=== PATIENT | male | born 1960 | race Caucasian/White ===

== ENCOUNTER 2017-06-12 07:05 | Day surgery (SDC) | payer BC ==
--- NOTE | 2017-06-10 21:22 | HP ---
CC: Dr. Pedroza * HISTORY AND PHYSICAL: DATE OF PLANNED ADMISSION AND SURGERY: 06/12/17 HISTORY OF PRESENT ILLNESS: Mr. Stokes is a 57-year-old white male, who is admitted with a recent episode of gross painless hematuria and a suspicious lesion in the right renal pelvis for cystoscopy, bilateral retrograde pyelographies, and possible bilateral ureteroscopies. Mr. Stokes was doing fine until about 10 days ago when he noted total gross painless hematuria. The urine was somewhat brownish. He had associated very mild left flank discomfort. He did not have any symptoms of renal colics. There were no symptoms of prostatitis or urinary tract infections. The patient was evaluated in the office and had a urinalysis, which was positive for blood, negative for infection. He then had a cystoscopy, which showed no suspicious bladder lesions. CT with IV contrast was suspicious of a 2-cm solid lesion in the area of the right renal pelvis. The radiologist who read the films initially reported possible small solid masses in both his kidneys; however, upon review with another radiologist (Dr. Bran), the only significant pathology was the right renal pelvis lesion. The patient had a renal ultrasound , which showed the same finding in the area of the renal pelvis, and no solid renal masses. Because of the above history and finding, the patient is admitted for the above procedure. PAST HISTORY: Relevant for an episode of a renal colic years ago. He has been asymptomatic and has had no recurrent flank pain or renal colics. He denies past history of gross hematuria or voiding symptoms. PAST MEDICAL HISTORY AND SYSTEM REVIEW: He is hypertensive, maintained on Norvasc 5 mg daily and lisinopril 10 mg daily. He is on 1 baby aspirin per day. He is on rosuvastatin 10 mg daily. He has GERD, on famotidine. He denies any allergies to medications. He gives past history of chronic heavy smoking. PHYSICAL EXAMINATION GENERAL: Pleasant and healthy-looking white male. VITAL SIGNS: Blood pressure 150/95, pulse 75. LUNGS: Clear. HEART: Regular and rhythmic. No murmurs. ABDOMEN: Soft. No masses, no tenderness, and no CVA tenderness. EXTERNAL GENITALIA: He is circumcised. No penile lesions. Normal testes and no inguinal hernias. RECTAL: Shows a slightly enlarged, but non-suspicious prostate. EXTREMITIES: Show no edema. IMPRESSION: Painless gross hematuria with history of chronic heavy smoking and a suspicious lesion in the mid right kidney, probably representing a pathology in the right renal pelvis. PLAN: Plan is for cystoscopy, bilateral retrograde pyelographies, possible bilateral ureteroscopies. I discussed the above plans with the patient and his and all their questions were answered. [id number] #: [id number] MTDD
[~2017-06-12 07:05] MED LIST: Buffered Lidocaine 0.9% SYRIN* 5 ML/SYR SYRINGE INTRADERM ONE; DiMENhydriNATE IV* 50 MG/ML VIAL IV PUSH PRN; Famotidine IV* 10 MG/ML 2 ML (20 mg) IV ONE; Morphine INJ* 2 MG/ML 1 ML CARPUJECT IV PRN; PROCHLORPERAZINE INJ 5 MG/ML 2 ML VIAL IV PRN; Scopolamine 1.5 mg* PATCH TRANSDERM PRN; fentaNYL* 50 MCG/ML 2 ML VIAL (100 MCG VIAL) IV PRN; oxyCODONE/Acetamin 5/325 MG* TAB PO PRN
[2017-06-12] MEDS ORDERED: cefTRIAXone(*) 2 GM ADDV.VIAL IVPB ONE (07:12)
[2017-06-12] MEDS ORDERED: Buffered Lidocaine 0.9% SYRIN* 5 ML/SYR SYRINGE ONE (07:12)
[2017-06-12] MEDS ORDERED: Famotidine IV* 10 MG/ML 2 ML (20 mg) ONE (07:12)
[2017-06-12] MEDS ORDERED: fentaNYL* 50 MCG/ML 2 ML VIAL (100 MCG VIAL) ONE ×2 (08:15→08:52)
[2017-06-12] MEDS ORDERED: Midazolam* 1 MG/ML 10 ML VIAL (10 MG) ONE (08:15)
[2017-06-12] MEDS ORDERED: KETAMINE HCL* 50 MG/ML 10 ML VIAL ONE (08:15)
[2017-06-12] MEDS ORDERED: Iohexol 180 (CONTRAST) 10 ML SDV IV ONE (08:21)
[2017-06-12] MEDS ORDERED: Propofol* 10 MG/ML 20 ML BTL IV PUSH ONE (08:49)
[2017-06-12] MEDS ORDERED: Dexamethasone IV* 4 MG/ML 1 ML (4 MG) ONE (08:49)
[2017-06-12] MEDS ORDERED: Ondansetron INJ* 2 MG/ML VIAL ONE (08:49)
[2017-06-12] MEDS ORDERED: Lidocaine 2% PF * 5 ML VIAL ONE (08:49)
[2017-06-12] MEDS ORDERED: Furosemide IV* 10 MG/ML 2 ML VIAL (20 MG) ONE (08:57)
[2017-06-12] MEDS ORDERED: Labetalol IV* 5 MG/ML 20 ML VIAL ONE (10:03)
--- NOTE | 2017-06-12 10:08 | RAD ---
CPT II Codes: 6045F INDICATION: Gross hematuria TECHNIQUE: Intraoperative fluoroscopy was provided during bilateral retrograde pyelography and right ureteral stent placement. FINDINGS: 6 spot films depict normal left-sided retrograde pyelography and moderate right-sided hydronephrosis. Final images depict anatomic placement of a right ureteral stent. Fluoroscopy time: 10 seconds IMPRESSION: As above.
[2017-06-12 11:30] VITALS: BP 136/94
--- NOTE | 2017-06-12 23:50 | OP ---
CC: Dr. Pedroza OPERATIVE REPORT: DATE OF OPERATION: 06/12/17 DATE OF : 56 SURGEON: Rico Byrd MD ANESTHESIOLOGIST: Barron Pollard MD ANESTHESIA: General. PRE-OP DIAGNOSIS: Mass of right renal pelvis. POST-OP DIAGNOSIS: Mass of upper pole collecting system of right kidney. OPERATIVE PROCEDURE: 1. Cystoscopy. 2. Bilateral retrograde pyelographies. 3. Washings from right and left collecting systems. 4. Right ureteroscopy and pyeloscopy. 5. Biopsy of lesion of right upper pole collecting system. 6. Placement of right ureteral stent (6 Egyptian). INDICATIONS: Mr. Stokes is a 57-year-old white male, who gives history of chronic and heavy smoking, and who was referred by Dr. Pedroza because of asymptomatic gross painless hematuria. Work-up with renal ultrasound and CT with IV contrast showed a soft tissue lesion in the area of the right renal pelvis. Office cystoscopy was negative. Urine cytology was negative. Because of the above history and findings, the patient brought in for the above procedures. PATHOLOGY AT CYSTOSCOPY: The penile and bulbar urethrae looked normal. The prostatic urethra measured 2.5 cm in length and there was early prostate enlargement and obstruction. Examination of the bladder showed a normal single orifice on each side. There were no suspicious bladder lesions seen. No calculi, diverticula, or lesions to suggest carcinoma in situ were noted in the bladder. Left retrograde pyelography showed a normal ureter and collecting system without any hydronephrosis or abnormal filling defects. Right retrograde pyelography showed a normal right ureter without any abnormal filling defects. There was mild right hydronephrosis with a large filling defect occupying the whole upper pole collecting system measuring 2 to 3 cm in size. Washings from the right kidney were bloody. Upon right ureteroscopy, the ureter looked normal. There was a papillary lesion seen protruding from the upper pole infundibulum. DESCRIPTION OF PROCEDURE: After successful general anesthesia, the patient was placed in lithotomy position and was prepped and draped for cystoscopy. Cystoscopy was performed. The bladder was carefully inspected and the above findings were noted. A flexible-tip guidewire was then introduced into the distal left ureter. An open-ended catheter was fed on top of the guidewire and positioned in the distal ureter. Retrograde pyelography was then performed demonstrating the whole left ureter and the collecting system and showing no abnormal defects or hydronephrosis. The guidewire was then introduced all the way into the left renal pelvis. The open- ended catheter was positioned in the renal pelvis. Washings were obtained from the left collecting system and sent for cytology. Attention was then directed to the right kidney. Right retrograde pyelography was performed similarly. The filling defect in the upper pole calyceal system was noted on retrograde. The guidewire was then reintroduced and successfully positioned into the right upper pole collecting system where the filling defect was noted. The open- ended catheter was then passed over the guidewire and positioned in the upper pole collecting system. Washings were obtained and sent for cytology. The open-ended catheter was then removed keeping the guidewire in place. A size 6.5 semi-rigid ureteroscope was introduced inside the bladder. A flexible-tip basket was introduced through the port of the ureteroscope and was introduced into the right ureter and was used as a guide to gently introduce the ureteroscope into the right ureter. The ureteroscope was introduced without difficulty and successfully passed all the way into the renal pelvis. A lesion was seen protruding from the upper pole infundibulum. The basket was positioned in the upper pole collecting system, was then deployed, and closed taking a biopsy from the lesion. The ureteroscope was then gently removed and the biopsy was placed in formalin and sent for pathology. There was no evidence of any extravasation from the collecting system or the ureter. A size 6-Egyptian stent was then placed with the proximal end coiling in the right collecting system and the distal end coiling inside the bladder. There was good drainage of contrast from the kidney and no extravasation. A size 16-Egyptian Galindo catheter was then placed. The patient tolerated the procedure well and left the operating room in good condition. There was no blood loss. The specimens were washings from right and left kidney and biopsy of lesion of upper pole collecting system. [id number]/[facility] #: [id number] [facility]
[2017-06-15] MEDS ORDERED: Scopolamine PATCH Remove* 1 NOTE MISC PATCH OFF ONE (06:40)
== END 2017-06-12 12:04 | disposition home or self-care (01) ==
LOC: OR 07:05
PROVIDERS: ATTEND Urology
DX: C65.1 Malignant neoplasm of right renal pelvis (principal); R31.0 Gross hematuria; I10 Essential (primary) hypertension; E78.5 Hyperlipidemia, unspecified; Z87.891 Personal history of nicotine dependence; K21.9 Gastro-esophageal reflux disease without esophagitis
CPT/HCPCS: 74420; 88112; 88305; 88313; 88342; C1876; J0696; J1100; J1940; J2250; J2405; J2704; J3010

== ENCOUNTER 2017-12-18 08:17 | Emergency (ER) | payer BC ==
[2017-12-18 08:22] VITALS: BP 130/97
--- NOTE | 2017-12-22 06:40 | ED ---
Wil Garcia Tiffany, scribed for Miles Donaldson MD on 12/18/17 at 0846 . GI/ HPI - HPI Summary HPI Summary: 57 year old M presenting to [facility] requesting catheter removal since this morning. Symptoms aggravated by nothing. Symptoms alleviated by nothing. Denies urinary symptoms. 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 - History of Current Complaint Chief Complaint: EDUrogenitalProblems Time Seen by Provider: 12/18/17 08:40 Stated Complaint: CATH REMOVAL Hx Obtained From: Patient Onset/Duration: Started Minutes Ago - this morning, Still Present Associated Signs and Symptoms: Positive: Negative - urinary symptoms Aggravating Factor(s): Nothing Alleviating Factor(s): Nothing - Allergy/Home Medications Allergies/Adverse Reactions: Allergies Allergy/AdvReac Type Severity Reaction Status Date / Time No Known Allergies Allergy Verified 12/18/17 08:22 Home Medications: Home Medications Aspirin [Adult Aspirin] 81 mg PO DAILY 12/18/17 [History Confirmed 12/18/17] Hydrochlorothiazide TAB* [Hydrodiuril TAB*] 25 mg PO DAILY 12/18/17 [History Confirmed 12/18/17] Lisinopril 10 mg PO DAILY 12/18/17 [History Confirmed 12/18/17] Metoprolol Succinate 25 mg PO DAILY 12/18/17 [History Confirmed 12/18/17] Rosuvastatin (NF) [Crestor (NF)] 10 mg PO DAILY 12/18/17 [History Confirmed 11/30] PMH/Surg Hx/FS Hx/Imm Hx Previously Healthy: No Endocrine/Hematology History: Denies: Hx Diabetes Cardiovascular History: Reports: Hx Hypertension - on meds Denies: Hx Pacemaker/ICD GI History: Reports: Hx Gastroesophageal Reflux Disease History: Reports: Hx Kidney Stones - 2000, Other Problems/Disorders - gross hematuria Sensory History: Reports: Hx Contacts or Glasses - glasses Denies: Hx Hearing Aid Opthamlomology History: Reports: Hx Contacts or Glasses - glasses Psychiatric History: Denies: Hx Panic Disorder - Cancer History Cancer Type, Location and Year: Kidney. Bladder Hx Chemotherapy: No - Surgical History Surgery Procedure, Year, and Place: RIGHT LEG - BONE CYST REMOVED - as a child. kidney stone surgery 2000 Hx Anesthesia Reactions: No Infectious Disease History: No Infectious Disease History: Denies: Traveled Outside the [place] in Last 30 Days - Family History Known Family History: Negative: Blood Disorder - Social History Alcohol Use: None Hx Substance Use: No Substance Use Type: Reports: None Hx Tobacco Use: Yes Smoking Status (MU): Former Smoker Amount Used/How Often: smoked for 30 years , 1ppd Review of Systems Negative: Fever, Chills Negative: Erythema Negative: Sore Throat Negative: Chest Pain Negative: Shortness Of Breath, Cough Negative: Abdominal Pain, Vomiting, Nausea Negative: dysuria, hematuria Negative: Myalgia, Edema Negative: Rash Neurological: Negative - Dizziness All Other Systems Reviewed And Are Negative: Yes Physical Exam - Summary Physical Exam Summary: Constitutional: Well-developed, Well-nourished, Alert. (-) Distressed Skin: Warm, Dry HENT: Normocephalic; Atraumatic Eyes: Conjunctiva normal Neck: Musculoskeletal ROM normal neck. (-) JVD, (-) Stridor, (-) Tracheal deviation Cardio: Rhythm regular, rate normal, Heart sounds normal; Intact distal pulses; The pedal pulses are 2+ and symmetric. Radial pulses are 2+ and symmetric. (-) Murmur Pulmonary/Chest wall: Effort normal. (-) Respiratory distress, (-) Wheezes, (-) Rales Abd: Soft, (-), epigastric tenderness, (-) Distension, (-) Guarding, (-) Rebound Musculoskeletal: (-) Edema Lymph: (-) Cervical adenopathy Neuro: Alert, Oriented x3 Psych: Mood and affect Normal Triage Information Reviewed: Yes Vital Signs On Initial Exam: Initial Vitals Temp Pulse Resp BP Pulse Ox 97.8 F 76 18 130/97 97 12/18/17 08:19 12/18/17 08:19 12/18/17 08:19 12/18/17 08:19 12/18/17 08:19 Vital Signs Reviewed: Yes Diagnostics - Vital Signs Vital Signs Temp Pulse Resp BP Pulse Ox 12/18/17 08:19 97.8 F 76 18 130/97 97 - Laboratory Lab Statement: Any lab studies that have been ordered have been reviewed, and results considered in the medical decision making process. GIGU Course/Dx - Course Course Of Treatment: 57 year old M catheter removal since this morning. Eli MEJIA removed patient's catheter. Discharged home with instructions to follow up with his primary care provider and to return for new or worsening symptoms. - Diagnoses Provider Diagnoses: Encounter for Galindo catheter removal Discharge - Sign-Out/Discharge Documenting (check all that apply): Discharge/Admit/Transfer - discharge - Discharge Plan Condition: Stable Disposition: HOME Patient Education Materials: Galindo Catheter Removal (DC) Referrals: Flora Pedroza MD [Primary Care Provider] - 3 Days Additional Instructions: Watch out for urinary retention. Follow up with your primary care provider in 3 days. RETURN TO THE EMERGENCY DEPARTMENT FOR CHANGING OR WORSENING SYMPTOMS. The documentation as recorded by the tulio, Marisabel De La Torre SCRIBE accurately reflects the service I personally performed and the decisions made by , Miles Donaldson MD.
== END 2017-12-18 08:52 | disposition home or self-care (01) ==
LOC: ED 08:17
DX: Z46.6 Encounter for fitting and adjustment of urinary device (principal); C64.9 Malignant neoplasm of unspecified kidney, except renal pelvis; C79.11 Secondary malignant neoplasm of bladder; I10 Essential (primary) hypertension; K21.9 Gastro-esophageal reflux disease without esophagitis; Z87.891 Personal history of nicotine dependence; Z79.82 Long term (current) use of aspirin; Z79.899 Other long term (current) drug therapy
CPT/HCPCS: 99282

== ENCOUNTER 2023-07-17 16:13 | Observation (INO) ==
[2023-07-17 17:06] LABS: ABS Basophils 0.1 10^3/uL (0.0-0.1); ABS Eosinophils 0.1 10^3/uL (0.0-0.5); ABS Lymphocytes 1.7 10^3/uL (1.0-4.8); ABS Monocytes 0.6 10^3/uL (0.0-1.1); ABS Neutrophils 10.1 10^3/uL (1.5-7.6); ABS Nucleated RBC 0.01 10^3/ul; Hematocrit 45.4 % (38-53); Hemoglobin 15.6 g/dL (13.2-16.3); Lymphocyte % 13.3 %; Mean Corpuscular Hemoglobin 29.7 pg (27-33); Mean Corpuscular Hgb Conc 34.5 g/dL (31-36); Mean Corpuscular Volume 86.2 fL (80-97); Mean Platelet Volume 8.4 fL (7.5-11.2); Nucleated Red Blood Cells % 0.1 %/100WBC (0.0-0.8); Platelet Count 258 10^3/uL (150-450); Red Blood Count 5.27 10^6/uL (4.06-5.63); Red Cell Distribution Width 13.8 % (12-17); White Blood Count 12.6 10^3/uL (3.6-10.2)
[2023-07-17 17:30] LABS: Albumin 3.9 g/dL (3.2-5.2); Albumin/Globulin Ratio 1.2 (1-3); Calcium 9.6 mg/dL (8.6-10.3); Creatinine, Serum 1.64 mg/dL (0.67-1.17); Globulin 3.2 g/dL (2-4); Potassium 3.2 mmol/L (3.5-5.0); Total Bilirubin 0.4 mg/dL (0.2-1.0); Total Protein 7.1 g/dL (6.4-8.9); eGFR CKD-EPI 46.1 (>60)
[2023-07-17] MEDS ORDERED: Tetan/Diph/Pertus SYR(Tdap) 0.5 ML SYR(BOOSTRIX) use SYR contains LATEX IM ONE (18:31)
[2023-07-17] MEDS ORDERED: NS 0.9% 1000 ml BAG 1,000 ML IV ONE ×2 (18:31→22:55)
[2023-07-17 18:45] LABS: High Sensitivity Troponin 1 Hr 24 pg/mL (<20)
[2023-07-17] MEDS ORDERED: Iodixanol (CONTRAST) 320 MG/ML 100 ML SDV IV ONE (19:19)
[2023-07-17 21:44] LABS: High Sensitivity Troponin 3 Hr 55 pg/mL (<20)
[2023-07-17] MEDS ORDERED: Potassium Chloride LIQUID 20 MEQ/15 ML LIQUID PO ONE (23:30)
[2023-07-18 05:21] LABS: High Sensitivity Troponin 1 Hr 42 pg/mL (<20)
[2023-07-18] MEDS ORDERED: Enoxaparin 40 MG/0.4 ML SYR SUBCUT SCH (06:00)
[2023-07-18 07:06] LABS: ABS Basophils 0.1 10^3/uL (0.0-0.1); ABS Eosinophils 0.1 10^3/uL (0.0-0.5); ABS Lymphocytes 1.6 10^3/uL (1.0-4.8); ABS Monocytes 0.6 10^3/uL (0.0-1.1); ABS Neutrophils 6.6 10^3/uL (1.5-7.6); ABS Nucleated RBC 0.01 10^3/ul; Eosinophil % 1.6 %; Hematocrit 41.2 % (38-53); Hemoglobin 14.1 g/dL (13.2-16.3); Mean Corpuscular Hemoglobin 29.8 pg (27-33); Mean Corpuscular Hgb Conc 34.3 g/dL (31-36); Mean Corpuscular Volume 86.9 fL (80-97); Mean Platelet Volume 8.5 fL (7.5-11.2); Nucleated Red Blood Cells % 0.1 %/100WBC (0.0-0.8); Platelet Count 205 10^3/uL (150-450); Red Blood Count 4.74 10^6/uL (4.06-5.63); Red Cell Distribution Width 13.9 % (12-17); White Blood Count 9.1 10^3/uL (3.6-10.2)
[2023-07-18 07:31] LABS: Calcium 8.3 mg/dL (8.6-10.3); Creatinine, Serum 1.4 mg/dL (0.67-1.17); Potassium 3.3 mmol/L (3.5-5.0); eGFR CKD-EPI 55.8 (>60)
[2023-07-18 07:37] LABS: Urine Appearance Cloudy; Urine Bilirubin Negative (Negative); Urine Blood Negative (Negative); Urine Color Yellow; Urine Glucose Negative (Negative); Urine Ketones Negative (Negative); Urine Nitrite Negative (Negative); Urine Protein Negative (Negative); Urine Specific Gravity 1.021 (1.002-1.030); Urine Urobilinogen Negative (Negative)
[2023-07-18 08:25] LABS: Urine Bacteria Absent (Absent); Urine Red Blood Cell Absent (Absent); Urine Squamous Epithelial Cell Present (Absent); Urine White Blood Cell 1+(6-10/hpf) (Absent)
[2023-07-18] MEDS ORDERED: Potassium Chlor 20 meq TAB.ER PO ONE (08:25)
[2023-07-18] MEDS ORDERED: Aspirin EC 81 mg TAB.EC (enteric coated) PO SCH (09:00)
[2023-07-18 15:15] VITALS: BP 139/86
== END 2023-07-18 16:43 | disposition home or self-care (01) ==
LOC: ED 16:13 → EDHOLD 23:16 → SUATTDRO 23:16 → INTOOBSV 23:16 → MEDTELE 07-18 12:11
PROVIDERS: ADMIT Internal Medicine; ATTEND Internal Medicine